=== PATIENT | female | born 1945 | race Two or more races ===

== ENCOUNTER → 2017-04-01 | Outpatient (CLI) | payer MEDICARE ==
[~2017-04-01] MED LIST: AMIODARONE HCL400 MG PO; AMLODIPINE BESYL5 MG PO; ANEXSIA 5/325 M1 TA1 PO; ASPIRIN81 M1 PO; BETAPACE PO; BIDIL PO; BYSTOLIC10 MG PO; CALCIUM + D 6001 TA1 PO; CALCIUM 500 + D1 TAB PO; COUMADIN2.5 MG PO; COUMADIN3 MG PO; DIOVAN HCT 80/11 TAB PO; FERRO-TIME325 MG PO; FUROSEMIDE40 MG PO; HYDROCHLOROTHIAZIDE; KLOR-CON PO; LOSARTAN POTAS100 MG PO; VALSARTAN; VITAMIN B 12
--- NOTE | ~2017-04-01 | MY11 ---
[facility] A Service of [facility] RADIOLOGY TEXT RESULTS PATIENT: REGINO PERRY I LOCATION: [facility] : 43 UNIT #: [id number] AGE: [address]: Ermelinda Waite MD SEX: F ORDER DR: [id number] [facility] [address] [place], [place] [address] [id number] O MR#: [id number] Acc #: [id number] NAME: REGINO PERRY : 1945 SEX: F STUDY DATE/TIME: 04/01/2017 14:04 UNIT: [facility] ROOM: STUDY DESCRIPTION: MY Mammogram Screening [facility] [employer] Attending Physician: Ermelinda Waite M.D. Ordering Physician: Ermelinda Waite M.D. Primary Care Physician: Ermelinda Waite M.D. MEDICAL IMAGING REPORT This report is preliminary unless electronic signature is present EXAM Bilateral digital screening mammogram with CAD, 04/01/2017. HISTORY 71-year-old female with no personal or family history of breast cancer. No current complaints. COMPARISON Right breast diagnostic mammogram 12/19/2010. Bilateral screening mammogram 11/16/2010. Targeted diagnostic right breast ultrasound 12/19/2010. FINDINGS CC and MLO views were obtained of each breast, utilizing digital technique, and reviewed with an FDA-approved CAD device. Scattered fibroglandular densities are present bilaterally. No suspicious nodule is seen. Fibronodular density in the superior hemisphere right breast MLO view, is unchanged to slightly less dense than on the 2010 examination, in keeping with benign finding. Benign calcifications are present bilaterally. No suspicious cluster of microcalcifications. No architectural distortion. IMPRESSION Benign findings. Routine bilateral screening mammogram is recommended in 1 year. Patients over the age of 40 are entered into a reminder system with target due date for the next mammogram. A result letter will also be sent to the patient. BIRADS: 2 Benign finding. [facility] A Service of [facility] RADIOLOGY TEXT RESULTS PATIENT: REGINO PERRY I LOCATION: [facility] : 43 UNIT #: [id number] AGE: [address]: Ermelinda Waite MD SEX: F ORDER DR: Dictated by... Aruna Russo M.D. THIS IS AN ELECTRONICALLY VERIFIED REPORT Aruna Russo M.D. at 04/02/2017 7:08 AM Oscar TD: 04/01/2017 18:00 JOB #: [id number] MEDICAL IMAGING REPORT Page 1 of 1 COPY
== END | disposition home or self-care (01) ==
LOC: CWCC 13:34
DX: Z12.31 Encounter for screening mammogram for malignant neoplasm of breast (principal)
CPT/HCPCS: G0202